=== PATIENT | male | born 1955 | race African-American/Black ===

== ENCOUNTER 2018-05-11 17:28 | Inpatient (IN) | payer OTHER ==
[~2018-05-11] VITALS: Ht 180.3 cm; Wt 88.6 kg
--- NOTE | 2018-05-11 17:44 | NUR ---
SUDHA BP: RIGHT ARM 150/91, LEFT ARM 145/89.
[2018-05-11] MEDS ORDERED: ACET-2154 PO (17:58)
[2018-05-11] MEDS ORDERED: DOCU-270 PO (17:58)
[2018-05-11] MEDS ORDERED: AMLO10TA2 PO (17:58)
[2018-05-11] MEDS ORDERED: FURO-152 PO (17:58)
[2018-05-11] MEDS ORDERED: ATOR80TA PO (17:58)
[2018-05-11] MEDS ORDERED: LISI40TA4 PO (17:58)
[2018-05-11] MEDS ORDERED: CLOP75TA15 PO (17:58)
[2018-05-11] MEDS ORDERED: CARV6.25 PO (17:58)
[2018-05-11] MEDS ORDERED: ASPI81TA31 PO (17:58)
[2018-05-11 18:00] LABS: BASOPHILS % (AUTO) 0.4 % (0.0-2.0); EOSINOPHILS % (AUTO) 0.7 % (0.0-7.0); HEMATOCRIT 47.5 % (36.7-47.1); LYMPHOCYTES # (AUTO) 1.8 K/uL (20.0-40.0); LYMPHOCYTES % (AUTO) 25.8 % (20.5-51.5); MEAN CORPUSCULAR HEMOGLOBIN 30.9 uug (23.8-33.4); MEAN CORPUSCULAR HGB CONC 34 g/dL (32.5-36.3); MEAN CORPUSCULAR VOLUME 91.6 fL (73.0-96.2); MONOCYTES # (AUTO) 0.7 K/uL (2.0-10.0); MONOCYTES % (AUTO) 9.8 % (0.0-11.0); NEUTROPHILS # (AUTO) 4.4 K/uL (1.8-8.9); NEUTROPHILS % (AUTO) 63.3 % (38.5-71.5); PLATELET COUNT (AUTO) 194 K/uL (152-348); RED BLOOD CELL COUNT(AUTO) 5.19 MIL/uL (4.06-5.63)
[2018-05-11] MEDS ORDERED: NITROGLYCERIN OINT 1 GM PACKET TP ONE ×2 (18:00)
[2018-05-11 18:09] LABS: CREATININE 2.5 mg/dL (0.6-1.3); POTASSIUM 4.1 mmol/L (3.5-5.1)
[2018-05-11] MEDS ORDERED: SWABABLE VALVE TRANSFER SET EA MC ONE (18:11)
[2018-05-11] MEDS ORDERED: IV NORMAL SALINE 100 ML ONE (18:11)
[2018-05-11] MEDS ORDERED: NORMAL SALINE FLUSH 10 ML DISP.SYRIN ONE (18:11)
[2018-05-11] MEDS ORDERED: IOHEXOL 350 100 ML INFUS..BTL ONE (18:11)
[2018-05-11 18:22] LABS: BILIRUBIN,DIRECT 0.2 mg/dL (0.0-0.2); BILIRUBIN,TOTAL 0.8 mg/dL (0.2-1.0); TOTAL PROTEIN, SERUM 8.3 g/dL (6.4-8.2)
--- NOTE | 2018-05-11 18:26 | NUR ---
DR. PIEDRA AWARE OF THE CREATININE LEVEL. REQUESTING CTA TO BE DONE REGARDLESS.
--- NOTE | 2018-05-11 19:10 | NUR ---
HANDS OFF REPORT GIVEN TO BETI GRAVES
--- NOTE | 2018-05-11 19:26 | NUR ---
ULTRASOUND AT BEDSIDE AT THIS TIME. VSS.
--- NOTE | 2018-05-11 20:23 | NUR ---
Pt. admitted to [facility] , under care of YEN KIDD DROP WIRE ALIGNER. Diagnosis: Chest Pain Belongs List completed. MRSA swab completed.
--- NOTE | 2018-05-11 20:32 | NUR ---
CRE. 2.[address] PIEDRA AWARE OK SCAN REGARDLESS
--- NOTE | 2018-05-11 20:45 | NUR ---
ADMITTED PATIENT IN TELE UNIT UNDER THE CARE OF YEN MCGOWAN NP, BELONGING LIST DONE.
[2018-05-11 20:48] VITALS: BP 170/107
[2018-05-11] MEDS ORDERED: CLONIDINE HCL 0.2 MG TABLET PO ONE (21:15)
[2018-05-11] MEDS ORDERED: MAGNESIUM HYDROXIDE 30 ML LIQUID UDC PO PRN (21:30)
[2018-05-11] MEDS ORDERED: ONDANSETRON 4 MG/2 ML VIAL IV PRN (21:30)
[2018-05-11] MEDS ORDERED: Z GUARD REMEDY PASTE 57 GM TUBE TOP PRN (21:30)
[2018-05-11] MEDS ORDERED: HYDROCODONE/APAP 10-325 MG TABLET PO PRN (21:30)
[2018-05-11] MEDS ORDERED: ACETAMINOPHEN 325 MG TABLET PO SCH (21:30)
[2018-05-11] MEDS ORDERED: DEXTROSE 50% 50 ML DISP.SYRIN IV PRN (21:30)
[2018-05-11] MEDS ORDERED: HYDROCODONE/APAP 5-325MG TABLET PO PRN (21:30)
[2018-05-11] MEDS ORDERED: CLONIDINE HCL 0.2 MG TABLET PO PRN (21:30)
[2018-05-11] MEDS ORDERED: ACETAMINOPHEN 325 MG TABLET PO PRN (21:30)
[2018-05-11] MEDS ORDERED: INSULIN REGULAR, HUMAN 300 UNIT/3 ML VIAL SQ PRN (21:30)
[2018-05-11] MEDS: MORPHINE SULFATE 2 MG/1 ML DISP.SYRIN IV PRN (22:14)
[2018-05-11] MEDS ORDERED: ATORVASTATIN 40 MG TABLET PO ONE (22:15)
[2018-05-11 23:48] VITALS: BP 119/78
--- NOTE | 2018-05-12 01:18 | NUR ---
SEEN BY DR. DELA CRUZ WITH ORDER NO LIFTING, PAIN MANAGEMENT, AND ABDOMINAL/SCROTUM SUPPORT. NOTIFY THE PATIENT.
[2018-05-12 03:41] VITALS: BP 122/77
[2018-05-12] MEDS: MORPHINE SULFATE 2 MG/1 ML DISP.SYRIN IV PRN (04:38)
[2018-05-12 05:04] LABS: *BILIRUBIN,URIN NEGATIVE (NEGATIVE); *BLOOD, URINE NEGATIVE (NEGATIVE); *CLARITY,URINE CLEAR (CLEAR); *COLOR,URINE YELLOW (YELLOW); *KETONES,URINE NEGATIVE (NEGATIVE); *PROTEIN,URINE TRACE (NEGATIVE); *UROBILINOGEN,URINE 0.2 E.U./dl (NORMAL); LEUKOCYTE ESTERASE ,URINE NEGATIVE (NEGATIVE); NITRITE, URINE NEGATIVE (NEGATIVE); PH,URINE 5.5 (5.0-8.0); UGLUCOSE NEGATIVE (NEGATIVE)
[2018-05-12 05:17] LABS: BACTERIA,URINE NONE SEEN /HPF (NONE SEEN); RBC,URINE NONE SEEN /HPF (0-3); SQUAMOUS EPITHELIAL CELL,UR FEW /HPF (NONE SEEN); WBC,URINE NONE SEEN /HPF (0-3)
[2018-05-12] MEDS: BLOOD SUGAR DIAGNOSTIC 1 EACH STRIP VI SCH ×4 (06:13→20:32)
[2018-05-12 06:30] LABS: BASOPHILS % (AUTO) 0.4 % (0.0-2.0); EOSINOPHILS # (AUTO) 0.1 K/uL (0.0-0.7); EOSINOPHILS % (AUTO) 1.6 % (0.0-7.0); HEMATOCRIT 43.6 % (36.7-47.1); HEMOGLOBIN 14.8 g/dL (12.5-16.3); LYMPHOCYTES # (AUTO) 2.4 K/uL (20.0-40.0); MEAN CORPUSCULAR HGB CONC 34 g/dL (32.5-36.3); MEAN CORPUSCULAR VOLUME 91.4 fL (73.0-96.2); MONOCYTES # (AUTO) 0.6 K/uL (2.0-10.0); MONOCYTES % (AUTO) 10.9 % (0.0-11.0); NEUTROPHILS # (AUTO) 2.7 K/uL (1.8-8.9); NEUTROPHILS % (AUTO) 46.1 % (38.5-71.5); PLATELET COUNT (AUTO) 166 K/uL (152-348); RED BLOOD CELL COUNT(AUTO) 4.77 MIL/uL (4.06-5.63); WHITE BLOOD COUNT (AUTO) 5.8 K/uL (3.6-10.2)
--- NOTE | 2018-05-12 06:30 | NUR ---
PATIENT AWAKE ALERT, CONT ON PAIN MANAGEMENT ON LEFT GROIN HERNIA, WHICH RADIATES TO CHEST AREA. PAIN MEDS EFFECTIVE. REMIND PATIENT TO REMAIN NPO, CALL LIGHT WITHIN REACH.
[2018-05-12 06:42] LABS: CREATININE 1.8 mg/dL (0.6-1.3); MAGNESIUM 2.1 mg/dL (1.8-2.4); PHOSPHOROUS 4.4 mg/dL (2.5-4.9); POTASSIUM 4.1 mmol/L (3.5-5.1)
[2018-05-12 06:55] LABS: THYROID STIMULATING HORMONE 5.36 mIU/mL (0.358-3.740)
--- NOTE | 2018-05-12 07:20 | NUR ---
PATIENT AWAKE ALERT AND ORIENTED X3 C/O BEARABLE TO MODERATE ABDOMINAL PAIN. CONTINUE WITH PAIN MANAGEMENT, NPO ORDERED. NO NV, NO CP SB ON MONITOR.
[2018-05-12] MEDS: CARVEDILOL 6.25 MG TABLET PO SCH ×2 (08:00→17:34)
--- NOTE | 2018-05-12 08:30 | NUR ---
RESULTS OF CTA CHEST AND PELVIS IN AND CALLED TO HOSPITALIST WITH ORDER TO START FEEDING PATIENT
[2018-05-12] MEDS: ASPIRIN 81 MG TAB.CHEW PO SCH (08:35)
[2018-05-12] MEDS: AMLODIPINE 10 MG TABLET PO SCH (08:37)
[2018-05-12] MEDS ORDERED: LISINOPRIL 20 MG TABLET PO SCH (09:00)
[2018-05-12] MEDS ORDERED: FUROSEMIDE 20 MG TABLET PO SCH (09:00)
[2018-05-12] MEDS ORDERED: Medication Not On Formulary EA (Lisinopril 40 MG) PO SCH (09:00)
[2018-05-12] MEDS: DOCUSATE SODIUM 100 MG CAPSULE PO PRN (09:57)
[2018-05-12] MEDS: CLOPIDOGREL 75 MG TABLET PO SCH (09:57)
[2018-05-12 11:40] VITALS: BP 134/76
[2018-05-12] MEDS ORDERED: IV 1/2NS 1000 ML 500 ML IV PRN (12:15)
[2018-05-12] MEDS ORDERED: IV 1/2NS 1000 ML 500 ML IV SCH (13:00)
[2018-05-12] MEDS ORDERED: MORPHINE SULFATE 2 MG/1 ML DISP.SYRIN IV PRN (13:30)
[2018-05-12] MEDS: MORPHINE SULFATE 4 MG/1 ML DISP.SYRIN IV PRN ×2 (13:35→19:27)
--- NOTE | 2018-05-12 15:08 | NUR ---
RD visited pt at bedside to provide diet education on Consistent CHO diet. Patient reported that he has no hx of DM. H&P states hx of hyperglycemia. 05/12: A1C 5.9 WNL, Glucose 85 WNL, 91 WNL. Recommend change diet to Cardiac diet. Addendum: 05/12/18 at [address] Amended: Links added.
--- NOTE | 2018-05-12 16:11 | NUR ---
PATIENT VERBALIZES 100% RELIEF FROM MORPHINE, NO SS OF DISTRESS WILL CONTINUE WITH PAIN MANAGEMENT
[2018-05-12 18:48] LABS: *BILIRUBIN,URIN NEGATIVE (NEGATIVE); *BLOOD, URINE NEGATIVE (NEGATIVE); *CLARITY,URINE CLEAR (CLEAR); *COLOR,URINE YELLOW (YELLOW); *KETONES,URINE NEGATIVE (NEGATIVE); *PROTEIN,URINE TRACE (NEGATIVE); *UROBILINOGEN,URINE 0.2 E.U./dl (NORMAL); LEUKOCYTE ESTERASE ,URINE NEGATIVE (NEGATIVE); NITRITE, URINE NEGATIVE (NEGATIVE); UGLUCOSE NEGATIVE (NEGATIVE)
[2018-05-12 19:00] LABS: *CREATININE,URINE 199.1 mg/dL (30-125); *URINE TOTAL PROTEIN RANDOM 24.1 mg/dL (<150/24HR)
[2018-05-12 19:30] VITALS: BP 145/76
[2018-05-12 19:38] LABS: MUCUS,URINE FEW /LPF (0-FEW); SQUAMOUS EPITHELIAL CELL,UR FEW /HPF (NONE SEEN)
--- NOTE | 2018-05-12 20:00 | NUR ---
PT ALERT, AWAKE, AND ORIENTED IN NO ACUTE DISTRESS. ABLE TO MAKE NEEDS KNOWN. STATES MORPHINE EFFECTIVE WITH PAIN MANAGEMENT. SINUS RHYTHM AND SINUS KEERTHI IN THE 50S NOTED ON FORMULA ROOM WORKER. NO S/S OF HYPER/HYPOGLYCEMIA. MAINTAINING 1/2NS AT 50CC/HR. WILL CONTINUE TO MONITOR. PT OFFERED MOM. CALL LIGHT WITHIN REACH. WILL CONTINUE TO MONITOR.
[2018-05-12] MEDS ORDERED: ATORVASTATIN 40 MG TABLET PO SCH (21:00)
[2018-05-12] MEDS: hydrALAZINE HCL 25 MG TABLET PO SCH (22:06)
[2018-05-13] MEDS: SULFAMETH/TRIMETH 800/160 MG TABLET PO SCH ×2 (00:02→08:20)
[2018-05-13] MEDS: MORPHINE SULFATE 4 MG/1 ML DISP.SYRIN IV PRN ×2 (00:54→05:03)
[2018-05-13 03:37] VITALS: BP 168/90
[2018-05-13] MEDS: hydrALAZINE HCL 25 MG TABLET PO SCH (05:02)
--- NOTE | 2018-05-13 06:00 | NUR ---
PT IN ROOM ASLEEP IN NO ACUTE DISTRESS. STATES MORPHINE IS HELPFUL TO PAIN AROUND GROIN AREA. ABLE TO MAKE NEEDS KNOWN. NO REACTION TO RECENT BACTRIM ATB. NO S/S OF HYPER/HYPOGLYCEMIA. PT ON ROUTINE HYDRALAZINE Q8HR. CALL LIGHT WITHIN REACH.
[2018-05-13 06:34] LABS: BASOPHILS % (AUTO) 0.3 % (0.0-2.0); EOSINOPHILS # (AUTO) 0.1 K/uL (0.0-0.7); EOSINOPHILS % (AUTO) 1.2 % (0.0-7.0); HEMATOCRIT 45.3 % (36.7-47.1); HEMOGLOBIN 15.4 g/dL (12.5-16.3); LYMPHOCYTES % (AUTO) 24.3 % (20.5-51.5); MEAN CORPUSCULAR HEMOGLOBIN 31.1 uug (23.8-33.4); MEAN CORPUSCULAR HGB CONC 34 g/dL (32.5-36.3); MEAN CORPUSCULAR VOLUME 91.3 fL (73.0-96.2); MONOCYTES # (AUTO) 0.8 K/uL (2.0-10.0); NEUTROPHILS # (AUTO) 5.2 K/uL (1.8-8.9); NEUTROPHILS % (AUTO) 64.2 % (38.5-71.5); PLATELET COUNT (AUTO) 168 K/uL (152-348); RED BLOOD CELL COUNT(AUTO) 4.96 MIL/uL (4.06-5.63); WHITE BLOOD COUNT (AUTO) 8.2 K/uL (3.6-10.2)
[2018-05-13 06:46] LABS: BILIRUBIN,TOTAL 0.7 mg/dL (0.2-1.0); CREATININE 1.5 mg/dL (0.6-1.3); MAGNESIUM 2.2 mg/dL (1.8-2.4); PHOSPHOROUS 3.9 mg/dL (2.5-4.9); POTASSIUM 3.9 mmol/L (3.5-5.1); TOTAL PROTEIN, SERUM 7.6 g/dL (6.4-8.2)
[2018-05-13] MEDS: BLOOD SUGAR DIAGNOSTIC 1 EACH STRIP VI SCH ×2 (06:47→11:57)
--- NOTE | 2018-05-13 07:37 | NUR ---
RESTING COMFORTABLY NO SS OF PAIN OR DISTRESS, CONTINUE WITH PAIN MANAGEMENT
[2018-05-13] MEDS: CARVEDILOL 6.25 MG TABLET PO SCH (08:21)
[2018-05-13] MEDS: CLOPIDOGREL 75 MG TABLET PO SCH (08:22)
[2018-05-13] MEDS: AMLODIPINE 10 MG TABLET PO SCH (08:22)
[2018-05-13] MEDS: ASPIRIN 81 MG TAB.CHEW PO SCH (08:22)
[2018-05-13] MEDS: DOCUSATE SODIUM 100 MG CAPSULE PO PRN (08:26)
[2018-05-13] MEDS ORDERED: LACTULOSE 20 G/30 ML LIQUID UDC PO ONE (09:00)
[2018-05-13] MEDS ORDERED: ISOSORBIDE MONONITRATE 60 MG TAB.SR.24H PO SCH (09:00)
[2018-05-13] MEDS ORDERED: Isosorbide Mononitrate PO (09:31)
[2018-05-13] MEDS ORDERED: HYDR-3326 PO (09:31)
[2018-05-13] MEDS ORDERED: HYDR25TA86 PO (09:31)
[2018-05-13] MEDS ORDERED: CEPH-570 PO (09:31)
[2018-05-13] MEDS ORDERED: PHEN-704 PO (09:31)
--- NOTE | 2018-05-13 09:41 | NUR ---
SEEN BY DR ORR SEE NOTES
[2018-05-13 11:44] VITALS: BP 149/62
--- NOTE | 2018-05-13 13:30 | NUR ---
SEEN BY HOSPITALIST WITH DC ORDER PATIENT REFUSED STAFF TO SCHEDULE FORF PCP APPOINTMENT PATIENT SAID HE WILL CALL HIS OWN APPOINTMENT
[2018-05-13] MEDS ORDERED: hydrALAZINE HCL 50 MG TABLET PO SCH (14:00)
[2018-05-13] MEDS ORDERED: hydrALAZINE HCL 25 MG TABLET PO SCH (14:00)
[2018-05-13 15:43] VITALS: BP 144/103
--- NOTE | 2018-05-13 16:07 | NUR ---
DISCHARGED HOME STABLE WITH RX AND FOLLOW-UP INSTRUCTION GIVEN TO PT.
== END 2018-05-13 16:00 | disposition home or self-care (01) | DRG 254 ==
LOC: ER 17:33 → TELE 20:26 → MED 05-12 22:11
PROVIDERS: ADMIT Registered Nurse; ATTEND Registered Nurse
DX: K40.20 Bilateral inguinal hernia, without obstruction or gangrene, not specified as recurrent (principal); N17.0 Acute kidney failure with tubular necrosis; N39.0 Urinary tract infection, site not specified; I13.0 Hypertensive heart and chronic kidney disease with heart failure and stage 1 through stage 4 chronic kidney disease, or unspecified chronic kidney disease; I50.22 Chronic systolic (congestive) heart failure; B96.89 Other specified bacterial agents as the cause of diseases classified elsewhere; I25.10 Atherosclerotic heart disease of native coronary artery without angina pectoris; Z87.891 Personal history of nicotine dependence; Z95.1 Presence of aortocoronary bypass graft; N18.9 Chronic kidney disease, unspecified; I25.2 Old myocardial infarction; Z95.5 Presence of coronary angioplasty implant and graft; Z79.82 Long term (current) use of aspirin; Z79.899 Other long term (current) drug therapy; E78.5 Hyperlipidemia, unspecified; Z90.79 Acquired absence of other genital organ(s); T50.1X5A Adverse effect of loop [high-ceiling] diuretics, initial encounter; Y92.89 Other specified places as the place of occurrence of the external cause; I70.0 Atherosclerosis of aorta; I25.5 Ischemic cardiomyopathy; Z79.02 Long term (current) use of antithrombotics/antiplatelets; T50.8X5A Adverse effect of diagnostic agents, initial encounter; N50.819 Testicular pain, unspecified; I49.3 Ventricular premature depolarization
CPT/HCPCS: 36415; 70030-TC; 71045; 76770; 76870; 83690; 83735; 84100; 84156; 84300; 84443; 85025; 85730; 93005; 93307; A4663; J1815; J2270; J3490; Q9967